=== PATIENT | male | born 1970 | race Caucasian/White ===

== ENCOUNTER 2016-11-29 11:16 | Day surgery (SDC) | payer OTHER ==
--- NOTE | 2016-11-27 20:28 | HP ---
PREOPERATIVE HISTORY AND PHYSICAL: DATE OF ADMISSION: 11/29/16 [facility] CHIEF COMPLAINT: Pain on the dorsal aspect of the right wrist. HISTORY OF PRESENT ILLNESS: Carloz is a 46-year-old male who had a metacarpal boss removed 2 years ago. He had relief of his symptoms, but recently his hand has been bothering him again. He also complains of some occasional numbness on the ulnar aspect of his right hand and some pain on the ulnar aspect of his right wrist, but his biggest complaint is the pain on the dorsal aspect of the right hand. He has had an MRI of the right wrist, which shows a ganglion cyst in the area of his pain. He had a nerve conduction study, which showed a mild cubital tunnel syndrome and he had also on MRI evidence of some mild TFCC irritation and ulnar positive variance. At this point, he just wishes treatment for the painful mass on the dorsal aspect of his hand. PAST MEDICAL HISTORY: Significant for obesity, gout, hypothyroidism, sleep apnea, kidney stones, anxiety, depression, eczema, nephrolithiasis, herniated disk, thrombocytopenia, tobacco use, low back pain, and chronic wrist pain. PAST SURGICAL HISTORY: Appendectomy in 1997, arthroscopic knee surgery, gastric bypass, hernia repair, and right wrist surgery. MEDICATIONS: The patient's medications are: 1. Ultracet 1 p.o. q.4 to 6 hours p.r.n. for pain. 2. Vitamin B complex 1 daily. 3. Probiotic two every day. 4. Ibuprofen 600 mg t.i.d. 5. Voltaren gel use as needed for hand pain. 6. Lidocaine 3% patch twice a day as needed. 7. Celexa 20 mg daily. 8. Oxycodone/acetaminophen 1 p.o. q.4 to 6 hours as needed for pain. 9. Colace 100 mg 1 tab p.o. 2 to 3 times a day. 10. Meclizine 25 mg every 8 hours as needed for vertigo. 11. Naprosyn 500 mg b.i.d. p.r.n. 12. Cyclobenzaprine 10 mg p.o. t.i.d. p.r.n. spasm. 13. Trazodone 100 mg p.o. q.h.s. 14. Ativan 1 mg twice daily as needed. 15. Levothyroxine sodium 125 mcg p.o. daily. 16. Allopurinol 300 mg p.o. daily. 17. Protonix 40 mg p.o. daily. 18. Phentermine 37.5 mg p.o. daily. 19. Loratadine 10 mg p.o. p.r.n. for allergies. 20. Zofran 4 mg p.o. b.i.d. for nausea. 21. Tamsulosin 0.4 mg p.o. daily. 22. Vitamin D3 complex daily. 23. Feliberto-Citrate 950 mg daily. 24. Vitamin B12 100 mcg p.o. daily. 25. Flintstones Plus Iron two a day. DRUG ALLERGIES: None. FAMILY HISTORY: Significant for leukemia, depression, anxiety, thyroid problems , and cancer, also diabetes, alcoholism. SOCIAL HISTORY: He has never smoked, but he has used chewing tobacco. PHYSICAL EXAMINATION GENERAL: He is a 46-year-old gentleman, who appears older than his stated age. He ambulates with the aid of a cane. He is alert and oriented. HEENT: Exam is unremarkable. Eye movements are concentric. NECK: He has good range of motion of his neck with mild pain. RESPIRATORY: His lungs are clear to auscultation, good inspiratory effort, no wheezing. CARDIAC: Regular rate and rhythm without murmur. PERIPHERAL VASCULAR: He has palpable pulses and no peripheral edema. EXTREMITIES: He has a tender mass on the dorsal aspect of his right hand. He has mild distal radioulnar joint pain with rotation and not a significant positive Tinel's sign of the ulnar nerve at the elbow. He can flex and extend his fingers well. He has pain making a full fist and flexing his wrist at the same time. NEUROLOGICAL: He is alert and oriented without focal deficits. IMPRESSION: Right dorsal wrist mass. PLAN: For right wrist mass removal. The surgical procedure, risks, and benefits were explained to the patient today and he agrees to proceed and we will see him back in followup for reevaluation in 10 to 14 days postop. [id number] #: [id number] MTDD
[2016-11-29] MEDS ORDERED: fentaNYL* 50 MCG/ML 2 ML VIAL (100 MCG VIAL) ONE (12:15)
[2016-11-29] MEDS ORDERED: Midazolam* 1 MG/ML 5 ML VIAL (5 MG) ONE (12:15)
[2016-11-29] MEDS ORDERED: Propofol* 10 MG/ML 20 ML BTL IV PUSH ONE (12:28)
[2016-11-29 13:16] VITALS: BP 110/73
--- NOTE | 2016-11-30 02:48 | OP ---
DATE OF OPERATION: 11/29/16 [facility] DATE OF : [birth year] SURGEON: Sandra Mancuso MD AEROSPACE PROJECT MANAGER: YAMEL Rubio ANESTHESIOLOGIST: Isabela Dumont MD ANESTHESIA: Local MAC. PRE-OP DIAGNOSIS: Right wrist mass. POST-OP DIAGNOSIS: Right wrist mass. OPERATIVE PROCEDURE: Removal of right wrist mass. ESTIMATED BLOOD LOSS: Zero. TOURNIQUET TIME: About 15 minutes. INDICATION FOR PROCEDURE: Carloz is a 46-year-old man who had a metacarpal boss removed from his right hand. He did well for quite a while, but recently has had a new mass present just proximal to the other and it has become painful. MRI shows it to be a ganglion cyst. He presents for removal. DESCRIPTION OF PROCEDURE: The patient was brought to the operating room, was given a sedation anesthetic and a local infiltration with 10 cc of 1% plain lidocaine on the dorsal aspect of his right hand. The skin of his right hand and forearm was prepped and draped in the usual sterile fashion. The hand and forearm were exsanguinated and the tourniquet elevated to 250 mmHg. The previous scar was incised and we dissected bluntly through the subcutaneous tissue. The tendons were retracted and there was a ganglion cyst emanating from the dorsal wrist capsule. It was removed with the portion of the wrist capsule and the edges of the capsule were cauterized with the Bovie. The wound was irrigated and the skin edges reapproximated with 4-0 nylon suture. The wound was dressed with Xeroform, 4 x 4, Webril, and an Gerry wrap. The patient tolerated the procedure well and was brought to the recovery room in good condition. [id number]/[facility] #: [id number] [facility]
== END 2016-11-29 13:14 | disposition home or self-care (01) ==
LOC: OREAST 11:16
PROVIDERS: ATTEND Orthopaedic Surgery
DX: M67.431 Ganglion, right wrist (principal); M10.9 Gout, unspecified; E03.9 Hypothyroidism, unspecified; G47.33 Obstructive sleep apnea (adult) (pediatric); M17.9 Osteoarthritis of knee, unspecified; F41.8 Other specified anxiety disorders; E66.9 Obesity, unspecified
CPT/HCPCS: 88304; J2250; J2704; J3010